=== PATIENT | male | born 1995 | race Caucasian/White ===

== ENCOUNTER → 2023-05-18 15:52 | Outpatient (REF) | payer OTHER, SELFPAY | LOC: RAD 15:52 | PROVIDERS: ATTENDING PHYSICIAN Physician Assistant Medical; FAMILY PHYSICIAN Family Medicine | DX: S72.352 Displaced comminuted fracture of shaft of left femur (principal); S82.222 Displaced transverse fracture of shaft of left tibia | CPT/HCPCS: 73552; 73590 ==